=== PATIENT | male | born 1960 | race Caucasian/White ===

== ENCOUNTER 2022-08-04 09:51 | Inpatient (IN) ==
[2022-08-04] MEDS ORDERED: fentaNYL citrate PF 100 MCG/2 ML VIAL IV STA (10:02)
[2022-08-04] MEDS ORDERED: NITROGLYCERIN SL 0.4 MG/TAB TAB SL STA (10:02)
--- NOTE | 2022-08-04 10:06 | Emergency Department Note ---
Impression & Plan ST elevation (STEMI) myocardial infarction ED Provider Note Name: JANIA GREENE Age: 62 Sex: M Arrives Via: Ambulance Informant: Patient, , daughter, EMS ED Provider: Reynaldo Matamoros MD Chief Complaint: Chest pain Impression: As per impression above Medical Decision Making: Pleasant 62-year-old gentleman with history of GERD though no PCP. Does note that he has had on and off chest discomfort for the last few days primarily the last 3 days. Substernal left-sided radiating down the left arm this morning in quite some discomfort. Patient received aspirin 324 mg and sublingual nitro prior to arrival. He did get a bit hypotensive with initial sublingual nitro so this was monitored closely when giving second along with some IV narcotic. Chest x-ray is unremarkable he has good pulses all 4 extremities. He has no tearing pain to back. EKG is consistent with STEMI morphology and thus I feel [facility] indicated. Heart alert was called and patient taken emergently to [facility] for further management. Patient vital signs stable throughout ED stay. I did discuss case with medical anthropologist at bedside. Triage/Nursing Notes reviewed by Me Differentials:ACS/STEMI/NSTEMI/unstable angina, myocarditis, pericarditis, PE, dissection, amongst other pathologies. Vital Signs: reviewed and remarkable for no significant abnormalities Interventions: Sublingual nitroglycerin, fentanyl 50 mcg IV Labs:Reviewed and remarkable for elevated troponin (returned after patient already at cardiac [facility]) Imagin view chest x-ray as per my interpretation reveals no significant wide mediastinum, abnormal cardiac border or pneumothorax, pneumonia. EKG:Per My Interpretation: Indication chest pain: Normal sinus rhythm at 73 bpm QTc of 403. There is anterior/septal ST elevations consistent with acute STEMI. Inferior depressions noted as well. When compared to an EKG of July 01, 2022 STEMI morphology is new. Cardiac/Tele Monitoring: Cardiac Monitoring: An Order was placed for continuous cardiac monitoring. The monitor shows a rate of 70 with a normal sinus rhythm. Consults:Dr Barriga medical anthropologist. Dr Simmons MS Hospitalist Plan: Disposition:Hospitalization. Discharged. Condition: Good History of Present Illness:62-year-old gentleman arrives for evaluation of chest pain. Patient notes that he has had intermittent left-sided chest pain for the last week. Radiates down his left arm. This morning significant worsening of the pain. Notes some moderate shortness of breath as well. Called 911. In route he was given nitro and aspirin. Note pain initially improved but is starting get worse again. Denies any back pain, abdominal pain, nausea, vomiting, syncope, weakness or other concerning signs or symptoms. No recent falls, trauma, injuries. No previous history of cardiac disease. He has a history of GERD. Takes Prilosec daily. No previous catheterizations. He does note that his grandfather of a heart attack. No smoking history. Past History:GERD Home Medications: Prilosec Allergies:NKDA Vitals:Blood Pressure: 140/87, Pulse 74, RR 16, T 36.5C, O2 100% on 2L NC Physical Exam: GENERAL: Patient is uncomfortable appearing and in moderate distress. NECK: No masses appreciated, nomeningismus, trachea is midline. RESPIRATORY: No dyspnea. Clear to auscultation and equal bilaterally. No wheeze, no rhonchi. CARDIOVASCULAR: Regular rate and rhythm.No murmurs, rubs, gallops appreciated. GASTROINTESTINAL: Abdomen soft, non-tender, no peritonitis.Bowel sounds positive.No masses appreciated. EXTREMITIES: Normal motion all extremities, no cyanosis, no edema. NEUROLOGIC: Alert and oriented, no gross focal neurologic deficit appreciated SKIN: No rash, no jaundice, no diaphoresis. PSYCH: Appropriate GCS: 15 ED Course: Times/Reassessments: Patient stable throughout his stay through in the ER with gradually improving chest pain and taken emergently to [facility] for further management. Critical Care: I have personally spent 35 minutes of critical care time in the direct management of this patient. STEMI with lab rep activation. This was a life/limb threatening event. This 35 minutes is in excess of all separately billable procedures. Reynaldo Matamoros MD Past Med/Surg History Medical History Cardiogenic shock Excessive daytime sleepiness Hyperlipidemia No pertinent past medical history Tobacco use Surgical History History of hernia repair Social History Smoking Status: Former smoker Tobacco Type: Smokeless Tobacco (Dip or Chew) Do You Dip or Chew Tobacco: No (Former smokeless tobacco user quit in April 2022.); Hx Alcohol Use: No Hx Substance Use: No Preferred Language: Luxembourgish Beliefs That Will Affect Care: None Current Living Situation: Family Feels Safe at Home: Yes Assistive Devices: Denture - Upper and Glasses Allergies Allergies Allergy/AdvReac Type Severity Reaction Status Date / Time No Known Allergies Allergy Unverified 07/01/22 11:40 Home Meds Home Medications Medication Instructions Recorded Confirmed omeprazole magnesium 20 mg 20 mg PO QAM 07/01/22 07/01/22 tablet,delayed release (Prilosec OTC) Previous Rx's Medication Instructions Recorded lidocaine 5 % topical patch 1 patch topical DAILY PRN pain #15 07/01/22 (Lidoderm) ea Results & Data (ED) Vital Signs Vital Signs - 24 hr 08/04/22 09:56 08/04/22 09:55 08/04/22 10:05 Temperature 36.5 C Temperature Source Oral Pulse Rate 74 Pulse Rate [Apical] 72 Pulse Rhythm [Apical] Respiratory Rate 16 16 Respiratory Effort / Characteristics Non-Labored Non-Labored Respiratory Depth Normal Normal Blood Pressure 140/87 Blood Pressure [Right Arm] 137/86 Blood Pressure Mean 104 Blood Pressure Mean [Right Arm] 103 Pulse Oximetry 100 100 Oxygen Delivery Method Nasal Cannula Nasal Cannula Nasal Cannula Oxygen Flow Rate 2 2 Sepsis Recent Fever Within 48 Hours No Sepsis New/Unexplained Change in Mental Status No Sepsis Action Taken by Nursing No Action Required 08/04/22 10:13 08/04/22 10:09 08/04/22 10:20 Temperature Temperature Source Pulse Rate 81 Pulse Rate [Apical] 73 80 Pulse Rhythm [Apical] Regular Regular Respiratory Rate 16 16 Respiratory Effort / Characteristics Non-Labored Non-Labored Respiratory Depth Normal Normal Blood Pressure Blood Pressure [Right Arm] 128/92 131/76 Blood Pressure Mean Blood Pressure Mean [Right Arm] 104 94 Pulse Oximetry 95 98 Oxygen Delivery Method Room Air Nasal Cannula Oxygen Flow Rate 2 Sepsis Recent Fever Within 48 Hours Sepsis New/Unexplained Change in Mental Status Sepsis Action Taken by Nursing 08/04/22 10:25 08/04/22 10:30 Temperature Temperature Source Pulse Rate Pulse Rate [Apical] 76 80 Pulse Rhythm [Apical] Regular Respiratory Rate 16 16 Respiratory Effort / Characteristics Non-Labored Non-Labored Respiratory Depth Normal Normal Blood Pressure Blood Pressure [Right Arm] 142/98 H 127/87 Blood Pressure Mean Blood Pressure Mean [Right Arm] 112 100 Pulse Oximetry 98 97 Oxygen Delivery Method Nasal Cannula Room Air Oxygen Flow Rate 2 Sepsis Recent Fever Within 48 Hours Sepsis New/Unexplained Change in Mental Status Sepsis Action Taken by Nursing Laboratory Data 08/05/22 01:43 08/05/22 01:43 Lab Results 08/04/22 08/04/22 08/04/22 Range/Units 10:20 10:20 10:20 WBC 10.48 (4.8-10.8) K/ul RBC 5.31 (4.70-6.10) M/uL Hgb 15.8 (14.0-18.0) g/dl Hct 44.9 (42.0-52.0) % MCV 84.6 (80.0-100.0) fL MCH 29.8 (25.0-34.0) pg MCHC 35.2 (32.0-36.0) g/dL RDW Std Deviation 38.5 (36.4-46.3) fL RDW Coeff of Ok 12.7 (11.5-14.5) % Plt Count 179 (130-400) K/uL MPV 12.2 (9.4-12.4) fL Immature Gran % (Auto) 0.7 % Neut % (Auto) 75.6 % Lymph % (Auto) 15.6 % [place] % (Auto) 7.3 % Eos % (Auto) 0.3 % Baso % (Auto) 0.5 % Neut # (Auto) 7.94 H (1.40-6.50) K/uL Lymph # (Auto) 1.63 (1.2-3.4) K/uL [place] # (Auto) 0.76 H (0.11-0.59) K/uL Eos # (Auto) 0.03 (0-0.50) K/uL Baso # (Auto) 0.05 (0-0.2) K/uL Immature Gran # (Auto) 0.07 (0.01-0.20) K/uL PT 11.0 (9.0-12.0) Seconds INR 1.0 (0.9-1.1) APTT 24.1 (21.0-31.0) Seconds PTT Ratio 0.9 Activ Coag Time Kaolin (94-140) SECONDS Sodium 137 (136-145) mmol/L Potassium 3.9 (3.5-5.1) mmol/L Chloride 104 (98-107) mmol/L Carbon Dioxide 23 (21-32) mmol/L Anion Gap 10 (3-11) BUN 12 (6-23) mg/dl Creatinine 0.84 (0.6-1.4) mg/dl Est Cr Clr Drug Dosing 114.8 ml/min Est GFR ( Amer) 110.3 ml/min Est GFR (Non-Af Amer) 95.2 ml/min BUN/Creatinine Ratio 14.3 (10-20) Glucose 216 H (70-99(Fasting)) mg/dl Calcium 9.0 (8.6-10.3) mg/dl Magnesium 1.7 (1.7-2.4) mg/dl Total Bilirubin 0.8 (0.2-1.0) mg/dl Direct Bilirubin 0.1 (0-0.2) mg/dl AST 29 (13-39) U/L ALT 53 H (7-52) U/L Alkaline Phosphatase 51 (34-104) U/L Troponin I High Sens 107.7 H* (0-20) pg/ml Total Protein 7.3 (6.0-8.3) gm/dl Albumin 4.0 (3.4-5.0) gm/dl SARS-CoV-2, RNA, NAAT (NEGATIVE) 08/04/22 08/04/22 08/04/22 Range/Units 10:27 10:58 11:19 WBC (4.8-10.8) K/ul RBC (4.70-6.10) M/uL Hgb (14.0-18.0) g/dl Hct (42.0-52.0) % MCV (80.0-100.0) fL MCH (25.0-34.0) pg MCHC (32.0-36.0) g/dL RDW Std Deviation (36.4-46.3) fL RDW Coeff of Ok (11.5-14.5) % Plt Count (130-400) K/uL MPV (9.4-12.4) fL Immature Gran % (Auto) % Neut % (Auto) % Lymph % (Auto) % [place] % (Auto) % Eos % (Auto) % Baso % (Auto) % Neut # (Auto) (1.40-6.50) K/uL Lymph # (Auto) (1.2-3.4) K/uL [place] # (Auto) (0.11-0.59) K/uL Eos # (Auto) (0-0.50) K/uL Baso # (Auto) (0-0.2) K/uL Immature Gran # (Auto) (0.01-0.20) K/uL PT (9.0-12.0) Seconds INR (0.9-1.1) APTT (21.0-31.0) Seconds PTT Ratio Activ Coag Time Kaolin 245 H 342 H (94-140) SECONDS Sodium (136-145) mmol/L Potassium (3.5-5.1) mmol/L Chloride (98-107) mmol/L Carbon Dioxide (21-32) mmol/L Anion Gap (3-11) BUN (6-23) mg/dl Creatinine (0.6-1.4) mg/dl Est Cr Clr Drug Dosing ml/min Est GFR ( Amer) ml/min Est GFR (Non-Af Amer) ml/min BUN/Creatinine Ratio (10-20) Glucose (70-99(Fasting)) mg/dl Calcium (8.6-10.3) mg/dl Magnesium (1.7-2.4) mg/dl Total Bilirubin (0.2-1.0) mg/dl Direct Bilirubin (0-0.2) mg/dl AST (13-39) U/L ALT (7-52) U/L Alkaline Phosphatase (34-104) U/L Troponin I High Sens (0-20) pg/ml Total Protein (6.0-8.3) gm/dl Albumin (3.4-5.0) gm/dl SARS-CoV-2, RNA, NAAT NEGATIVE (NEGATIVE) Administered Medications Acetaminophen (Acetaminophen 325 Mg Tab) 650 mg PO Q4H PRN PRN Reason: MILD Pain (Scale 1,2,3) Stop: 09/03/22 12:17 Last Admin: 08/04/22 20:29 Dose: 650 mg Documented By: Admin: 08/04/22 15:05 Dose: 650 mg Documented By: MSD Norepinephrine Bitartrate (Levophed/D5w) 4 mg in 250 mls @ 19.519 mls/hr IV .[id number] [facility]; Protocol Stop: 09/03/22 12:29 Last Admin: 08/05/22 03:05 Dose: Not Given Documented By: Admin: 08/04/22 13:35 Dose: Not Given Documented By: MSD Insulin Aspart (Insulin Aspart Per Unit Charge) 0 units SC [facility] Stop: 09/03/22 17:14 Last Admin: 08/04/22 20:22 Dose: 6 units Documented By: TG Co-signed By: DYLAN Admin: 08/04/22 17:09 Dose: Not Given Documented By: ROCIO Metoprolol Tartrate (Metoprolol Tartrate 25 Mg Tab) 12.5 mg PO BID [facility] Stop: 09/03/22 20:59 Last Admin: 08/04/22 20:23 Dose: 12.5 mg Documented By: JR Miscellaneous (Icu Protocol For Hyperglycemia) 1 each N/A [facility] Stop: 08/06/22 12:43 Last Admin: 08/04/22 21:28 Dose: 1 each Documented By: Admin: 08/04/22 16:34 Dose: 1 each Documented By: Admin: 08/04/22 13:47 Dose: 1 each Documented By: ROCIO Ticagrelor (Ticagrelor 90 Mg Tab) 90 mg PO BID [facility] Stop: 09/03/22 20:59 Last Admin: 08/04/22 20:23 Dose: 90 mg Documented By: JR Discontinued Medications Atropine Sulfate (Atropine Sulfate 0.1 Mg/Ml 10ml Syr) Confirm Administered Dose 1 mg IV .STK-MED ONE Stop: 08/04/22 10:18 Last Admin: 08/04/22 13:15 Dose: Not Given Documented By: MSD Calcium Chloride (Calcium Chloride 10% 10 Ml Syr) Confirm Administered Dose 1,000 mg IV .STK-MED ONE Stop: 08/04/22 10:17 Last Admin: 08/04/22 13:15 Dose: Not Given Documented By: MSD Epinephrine HCl (Epinephrine 1.5" Ndl 0.1 Mg/Ml Syr) Confirm Administered Dose 1 mg IV .STK-MED ONE Stop: 08/04/22 10:17 Last Admin: 08/04/22 13:15 Dose: Not Given Documented By: MSD Eptifibatide (Eptifibatide 2 Mg/Ml 10 Ml Vial ([facility] Use Only)) Confirm Administered Dose 40 mg IV .STK-MED ONE Stop: 08/04/22 10:59 Last Admin: 08/04/22 11:55 Dose: 40 mg Documented By: EV Eptifibatide (Eptifibatide 0.75 Mg/Ml 75mg Vial ([facility] Use Only)) Confirm Administered Dose 75 mg IV .STK-MED ONE Stop: 08/04/22 10:59 Last Admin: 08/04/22 11:56 Dose: 75 mg Documented By: SHERIN Fentanyl Citrate (Fentanyl Citrate Pf 100 Mcg/2 Ml Vial) 50 mcg IV NOW STA Stop: 08/04/22 10:03 Last Admin: 08/04/22 10:07 Dose: 50 mcg Documented By: BALDOMERO Fentanyl Citrate (Fentanyl Citrate Pf 100 Mcg/2 Ml Vial) Confirm Administered Dose 100 mcg .ROUTE .STK-MED ONE Stop: 08/04/22 10:10 Last Increment: 08/04/22 11:54 Dose: 75 mcg Documented By: SHERIN Furosemide (Furosemide 40 Mg/4 Ml Vial) Confirm Administered Dose 40 mg IV .STK- MED ONE Stop: 08/04/22 11:55 Last Admin: 08/04/22 11:57 Dose: 40 mg Documented By: DOROTHY Heparin Sodium (Porcine) (Heparin (Porcine) 1000 Unit/Ml 10 Ml ([facility] Use Only)) Confirm Administered Dose 10,000 units .ROUTE .STK-MED ONE Stop: 08/04/22 10:10 Last Admin: 08/04/22 11:34 Dose: 10,000 units Documented By: SHERIN Heparin Sodium (Porcine) (Heparin (Porcine) 1000 Unit/Ml 10 Ml ([facility] Use Only)) Confirm Administered Dose 10,000 units .ROUTE .STK-MED ONE Stop: 08/04/22 11:03 Last Admin: 08/04/22 11:56 Dose: 2,000 units Documented By: SHERIN Heparin Sodium (Porcine) (Heparin (Porcine) 1000 Unit/Ml 10 Ml ([facility] Use Only)) Confirm Administered Dose 10,000 units .ROUTE .STK-MED ONE Stop: 08/04/22 11:24 Last Admin: 08/04/22 11:57 Dose: Not Given Documented By: SHERIN Heparin Sodium/Sodium Chloride (Heparin In Nss Infusion 1000 Unit/500 Ml (2 U/Ml) Bag) Confirm Administered Dose 4,000 units IV .STK-MED ONE Stop: 08/04/22 10:11 Last Admin: 08/04/22 11:55 Dose: 4,000 units Documented By: EV Eptifibatide (Integrilin) 75 mg in 100 mls @ 16.656 mls/hr IV .Q6H1M [facility]; Protocol Stop: 08/04/22 15:00 Last Infusion: 08/04/22 15:10 Dose: 0 mcg/kg/min, 0 mls/hr Documented By: MSD Co-signed By: THERESE Admin: 08/04/22 13:36 Dose: 2 mcg/kg/min, 16.7 mls/hr Documented By: MSD Co-signed By: OLINDA Magnesium Sulfate/Dextrose (Magnesium Sulfate / D5w) 1 gm in 100 mls @ 50 mls/hr IV Q2H JEREMY Stop: 08/05/22 02:59 Last Infusion: 08/05/22 03:05 Dose: 0 mls/hr Documented By: Admin: 08/05/22 00:55 Dose: 50 mls/hr Documented By: Infusion: 08/05/22 00:55 Dose: 50 mls/hr Documented By: Admin: 08/04/22 22:58 Dose: 50 mls/hr Documented By: Infusion: 08/04/22 22:58 Dose: 50 mls/hr Documented By: Admin: 08/04/22 21:24 Dose: 50 mls/hr Documented By: TG Famotidine 20 mg/ Syringe 5 mls @ 2.5 mls/min IV 2145 ONE Stop: 08/04/22 21:46 Last Admin: 08/04/22 22:06 Dose: 2.5 mls/min Documented By: JR Lidocaine HCl (Lidocaine 2% 20 Mg/Ml 5 Ml Syr) Confirm Administered Dose 100 mg IV .STK-MED ONE Stop: 08/04/22 10:18 Last Admin: 08/04/22 13:15 Dose: Not Given Documented By: ROCIO Midazolam HCl (Midazolam Hcl 1 Mg/Ml 2ml Vial) Confirm Administered Dose 2 mg .ROUTE .STK-MED ONE Stop: 08/04/22 10:10 Last Admin: 08/04/22 11:34 Dose: 2 mg Documented By: SHERIN Nicardipine HCl (Nicardipine Hcl Inj 2.5 Mg/Ml 10 Ml Amp) Confirm Administered Dose 25 mg .ROUTE .STK-MED ONE Stop: 08/04/22 10:10 Last Admin: 08/04/22 11:55 Dose: 25 mg Documented By: EV Nitroglycerin (Nitroglycerin Sl 0.4 Mg/Tab Tab) 0.4 mg SL NOW STA Stop: 08/04/22 10:03 Last Admin: 08/04/22 10:07 Dose: 0.4 mg Documented By: BALDOMERO Nitroglycerin/Dextrose (Nitroglycerin/D5w 100mcg/Ml 20ml Syr) Confirm Administered Dose 2,000 mcg .ROUTE .STK-MED ONE Stop: 08/04/22 10:11 Last Admin: 08/04/22 11:55 Dose: 2,000 mcg Documented By: EV Norepinephrine Bitartrate (Norepinephrine Bitartrate 1 Mg/Ml 4 Ml Vial ([facility] Use Only)) Confirm Administered Dose 4 mg IV .STK-MED ONE Stop: 08/04/22 11:01 Last Admin: 08/04/22 11:35 Dose: 4 mg Documented By: SHERIN Ondansetron HCl (Ondansetron Inj 2 Mg/Ml 2 Ml Vial) Confirm Administered Dose 4 mg .ROUTE .STK-MED ONE Stop: 08/04/22 11:27 Last Admin: 08/04/22 11:36 Dose: 4 mg Documented By: SHERIN Potassium Chloride (Potassium Chloride Crtab 20 Meq Tabcr) 40 meq PO NOW STA Stop: 08/04/22 20:46 Last Admin: 08/04/22 21:24 Dose: 40 meq Documented By: JR Sodium Bicarbonate (Sodium Bicarb 8.4% Inj 50 Meq/50 Ml Syr) Confirm Administered Dose 50 meq IV .STK-MED ONE Stop: 08/04/22 10:18 Last Admin: 08/04/22 13:16 Dose: Not Given Documented By: ROCIO Ticagrelor (Ticagrelor 90 Mg Tab) Confirm Administered Dose 180 mg .ROUTE .STK-M ED ONE Stop: 08/04/22 11:59 Last Admin: 08/04/22 12:05 Dose: 180 mg Documented By: DOROTHY Discharge Plan Visit Data Chief Complaint: Chest Pain Stated Complaint: CHEST PAIN, SOB ED Provider: Reynaldo Matamoros Discharge Problem: ST elevation (STEMI) myocardial infarction Patient Disposition: Admitted As Inpatient Discharge Instructions Interventions: ED Discharge Assessment Last Done: 08/04/22 10:29
[2022-08-04] MEDS ORDERED: MIDAZOLAM HCL 1 MG/ML 2ML VIAL ONE (10:09)
[2022-08-04] MEDS ORDERED: HEPARIN (PORCINE) 1000 UNIT/ML 10 ML (CATH LAB USE ONLY) ONE ×3 (10:09→11:23)
[2022-08-04] MEDS ORDERED: fentaNYL citrate PF 100 MCG/2 ML VIAL ONE (10:09)
[2022-08-04] MEDS ORDERED: niCARdipine HCL INJ 2.5 MG/ML 10 ML AMP ONE (10:09)
[2022-08-04] MEDS ORDERED: NITROGLYCERIN/D5W 100MCG/ML 20ML SYR ONE (10:10)
[2022-08-04] MEDS ORDERED: CALCIUM CHLORIDE 10% 10 ML SYR IV ONE (10:16)
[2022-08-04] MEDS ORDERED: LIDOCAINE 2% 20 MG/ML 5 ML SYR IV ONE (10:17)
[2022-08-04] MEDS ORDERED: SODIUM BICARB 8.4% INJ 50 MEQ/50 ML SYR IV ONE (10:17)
[2022-08-04] MEDS ORDERED: ATROPINE SULFATE 0.1 MG/ML 10ML SYR IV ONE (10:17)
--- NOTE | 2022-08-04 10:32 | XRay Report ---
XR chest 1V portable CLINICAL HISTORY: left chest pain TECHNIQUE: Single frontal radiograph of the chest was obtained. Comparison: Comparison is made to chest radiograph 07/01/2022 FINDINGS: No lines and tubes are seen. The cardiomediastinal silhouette is normal. The lungs are clear. No evid ence of pleural effusion or pneumothorax. IMPRESSION: No acute chest disease. ACT 112: Negative or not required by law. Electronically signed by: Carson Daniel M.D. 08/04/2022 10:30 AM
--- NOTE | 2022-08-04 10:37 | Pre Anesthesia Assessment ---
Date of Service August 04, 2022 Pre Sedation Assessment Vital Signs Temp Pulse Pulse Resp BP BP Pulse Ox 08/04/22 10:30 80 16 127/87 97 08/04/22 10:25 76 16 142/98 H 98 08/04/22 10:20 80 16 131/76 98 08/04/22 10:09 81 08/04/22 10:13 73 16 128/92 95 08/04/22 10:05 72 16 137/86 100 08/04/22 09:55 08/04/22 09:56 97.7 F 74 16 140/87 100 O2 Del Method O2 Flow Rate 08/04/22 10:30 Room Air 08/04/22 10:25 Nasal Cannula 2 08/04/22 10:20 Nasal Cannula 2 08/04/22 10:09 08/04/22 10:13 Room Air 08/04/22 10:05 Nasal Cannula 2 08/04/22 09:55 Nasal Cannula 08/04/22 09:56 Nasal Cannula 2 Cardiovascular RRR, no murmur, no edema Respiratory normal respiratory effort, lungs clear to auscultation Pre-Sedation Airway Assessment Smoking Status: Never smoker Hx Sleep Apnea: No Hx Difficult Intubation: No Short, Thick Neck: No Oral Cavity: + WNL Mallampati Class: III ASA: ASA3 Procedure Planning Contraindications for Sedation: none Current Medications Reviewed: Yes Notes The planned sedation has been discussed with the patient. Informed Consent was obtained. I have identified the patient, determined the appropriateness of sedation and have assessed the patient immediately prior to the procedure. All medicine(s) and interventions are by my order.
[2022-08-04 10:39] LABS: Basophils # (auto) 0.05 K/uL (0-0.2); Basophils % (auto) 0.5 %; Eosinophils # (auto) 0.03 K/uL (0-0.50); Eosinophils % (auto) 0.3 %; Hematocrit (blood only) 44.9 % (42.0-52.0); Hemoglobin 15.8 g/dl (14.0-18.0); Immature Granulocytes # (auto) 0.07 K/uL (0.01-0.20); Immature Granulocytes % (auto) 0.7 %; Lymphocytes # (auto) 1.63 K/uL (1.2-3.4); Lymphocytes % (auto) 15.6 %; Mean Corpuscular Hemoglobin 29.8 pg (25.0-34.0); Mean Corpuscular Hgb Conc 35.2 g/dL (32.0-36.0); Mean Corpuscular Volume 84.6 fL (80.0-100.0); Mean Platelet Volume 12.2 fL (9.4-12.4); Monocytes # (auto) 0.76 K/uL (0.11-0.59); Monocytes % (auto) 7.3 %; Neutrophils # (auto) 7.94 K/uL (1.40-6.50); Neutrophils % (auto) 75.6 %; Platelet Count 179 K/uL (130-400); RDW Coefficient of Variation 12.7 % (11.5-14.5); RDW Standard Deviation 38.5 fL (36.4-46.3); Red Blood Count 5.31 M/uL (4.70-6.10); White Blood Count 10.48 K/ul (4.8-10.8)
--- NOTE | 2022-08-04 10:41 | Cardiology Consultation ---
Date of Consultation August 04, 2022 Assessment & Plan (1) ST elevation (STEMI) myocardial infarction: Plan Presentation consistent with anterior STEMI and recommend proceeding with emergent cardiac catheterization and likely primary PCI. No apparent contraindications to procedure. Discussed risks, benefits, alternatives of procedure with patient and they are willing to proceed. Further recommendations pending findings of coronary angiography. History of Present Illness History of Present Illness 62-year-old man here with acute chest pain and ECG concerning for acute MA. Patient seen emergently in the ED. No prior cardiac history. Denies significant cardiac risk factors. History of GERD on intermittent PPI and back pain. Has been having intermittent left sided chest pain for the last 2-3 days, worse with exertion and with associated dyspnea and belching. This morning pain more severe with associated diaphoresis. Active chest pain on arrival, improved with fentanyl, nitro. Hemodynamically stable. ECG showed sinus rhythm with NOHELIA in V2, V3, aVL and reciprocal inferior changes. FHx: Grandfathers with CAD. 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 Non-smoker. Does chew tobacco. Allergies Allergy/AdvReac Type Severity Reaction Status Date / Time No Known Allergies Allergy Unverified 07/01/22 11:40 Home Medications Medication Instructions Recorded Confirmed Type lidocaine 5 % topical patch 1 patch topical DAILY PRN pain #15 07/01/22 Rx (Lidoderm) ea omeprazole magnesium 20 mg 20 mg PO QAM 07/01/22 07/01/22 History tablet,delayed release (Prilosec OTC) Patient History Medical History Cardiogenic shock Excessive daytime sleepiness Hyperlipidemia No pertinent past medical history Tobacco use Surgical History History of hernia repair Social History Smoking Status: Former smoker Tobacco Type: Smokeless Tobacco (Dip or Chew) Do You Dip or Chew Tobacco: No (Former smokeless tobacco user quit in April 2022.); Hx Alcohol Use: No Hx Substance Use: No Preferred Language: Citizen Of [place] Beliefs That Will Affect Care: None Current Living Situation: Family Feels Safe at Home: Yes Assistive Devices: Denture - Upper and Glasses Review of Systems Review of Systems: All systems reviewed & are unremarkable except as noted in HPI & below Physical Exam Physical Exam: General: Uncomfortable HEENT: Sclerae anicteric Lungs: Clear to auscultation bilaterally Cardiac: Regular rate and rhythm, no murmurs. Vascular: 2+ radial Abdomen: Soft, nontender Extremities: Well perfused, no peripheral edema Neuro: Nonfocal Psych: Alert orient x3, normal affect and mood Results & Data Vital Signs (Past 12 Hours) Vital Signs Temp Pulse Pulse Resp BP BP Pulse Ox 08/04/22 10:30 80 16 127/87 97 08/04/22 10:25 76 16 142/98 H 98 08/04/22 10:20 80 16 131/76 98 08/04/22 10:09 81 08/04/22 10:13 73 16 128/92 95 08/04/22 10:05 72 16 137/86 100 08/04/22 09:55 08/04/22 09:56 97.7 F 74 16 140/87 100 O2 Del Method O2 Flow Rate 08/04/22 10:30 Room Air 08/04/22 10:25 Nasal Cannula 2 08/04/22 10:20 Nasal Cannula 2 08/04/22 10:09 08/04/22 10:13 Room Air 08/04/22 10:05 Nasal Cannula 2 08/04/22 09:55 Nasal Cannula 08/04/22 09:56 Nasal Cannula 2 PG Care Time/CCT Total # of Minutes Spent Total Time Spent with Patient: Total time spent is greater than 50% in coordination of care (as documented) at patient's floor/unit and/or counseling patient: Coding Level of Care Code 24999 OFFICE CONSULT LVL /40M Diagnoses ST elevation (STEMI) myocardial infarction I21.3
[2022-08-04 10:50] LABS: BUN Creatinine Ratio 14.3 (10-20); Bilirubin Direct 0.1 mg/dl (0-0.2); Bilirubin,Total 0.8 mg/dl (0.2-1.0); Creatinine Clr Calc Pharmacy 114.8 ml/min; Est GFR (African American) 110.3 ml/min; Est GFR (Non-African American) 95.2 ml/min; Magnesium 1.7 mg/dl (1.7-2.4); Potassium 3.9 mmol/L (3.5-5.1); Total Protein 7.3 gm/dl (6.0-8.3)
[2022-08-04 10:58] LABS: Troponin I High Sensitivity 107.7 pg/ml (0-20)
[2022-08-04] MEDS ORDERED: EPTIFIBATIDE 0.75 MG/ML 75MG VIAL (CATH LAB USE ONLY) IV ONE (10:58)
[2022-08-04] MEDS ORDERED: EPTIFIBATIDE 2 MG/ML 10 ML VIAL (CATH LAB USE ONLY) IV ONE (10:58)
[2022-08-04] MEDS ORDERED: NOREPINEPHRINE BITARTRATE 1 MG/ML 4 ML VIAL (CATH LAB USE ONLY) IV ONE (11:00)
[2022-08-04 11:19] LABS: Partial Thromboplastin Ratio 0.9; Partial Thromboplastin Time 24.1 Seconds (21.0-31.0)
[2022-08-04] MEDS ORDERED: ONDANSETRON INJ 2 MG/ML 2 ML VIAL ONE (11:26)
--- NOTE | 2022-08-04 11:26 | History & Physical Report ---
Date of Service August 04, 2022 Assessment & Plan (1) ST elevation (STEMI) myocardial infarction: Plan: Glynn is a 62-year-old male with no prior medical history other than GERD on omeprazole and back pain on flexeril/lidocaine in the past who does not follow with a who presented with chest pain radiating into his arm. STEMI Patient presented with 2 to 3 days of chest pain which abruptly worsened in with a sudden change in severity and associate with diaphoresis day of presentation Initial troponin 100 - EKG in ER shows ST elevations in aVL/V2/V3 leads with reciprocal changes consistent with acute STEMI. Patient is taken emergently to the Sales And Distribution Clerk. Patient taken as a heart alert emergently to cardiac Sales And Distribution Clerk. Is now s/p LAD stent x1, circumflex stent x3 Loaded with heparin and Brilinta while in ER, received Integrilin during catheterization and continued in ICU Patient with near complete resolution of pain post procedure No prior cardiac history, denies other medical history other than GERD. On discussion with family patient did have a prior history of hyperlipidemia for which she was formally on a cholesterol medicine but has not been on this in many years. He is with a family history of hyperlipidemia and almost all male family m embers, history of OR in both grandfathers No personal history of DM, hypertension Required Levophed use during catheterization for cardiogenic shock, improved post cath and weaned off of Levophed by time of ICU reevaluation Metoprolol temporarily held following Levophed use Atorvastatin 80 mg ordered, lipid panel pending A1c pending Brilinta/aspirin DAPT ordered by cardiology, patient counseled to continue this for at least 1 year Beta-ramsey, LATONIA/ARB/WIN temporarily deferred for recent hypotension requiring pressors. Troponin trended, echo pending Hyperlipidemia Lipid panel Continue atorvastatin 80 mg Impaired fasting glucose BSG 216 on admission, no prior history of DM Insulin hyperglycemia protocol while in ICU A1c pending Diet: Heart healthy Disposition: ICU CODE STATUS: Full code (2) Cardiogenic shock: (3) Hyperlipidemia: (4) Tobacco use: History of Present Illness Primary Care Provider: NO PCP Glynn is a 62-year-old male with no prior medical history other than GERD on omeprazole and back pain on flexeril/lidocaine in the past who does not follow with a who presented with chest pain radiating into his arm. EKG in ER shows ST elevations in aVL/V2/V3 leads with reciprocal changes consistent with acute STEMI. Patient is taken emergently to the Sales And Distribution Clerk. Collateral is collected with the assistance of family while patient is at the bedside.. Per patient's family he has a distant history of hyperlipidemia and a strong family history of hyperlipidemia and multiple male siblings, father, and male grandparents. Glynn was reportedly on a cholesterol medicine many years ago, but has not recently followed with a doctor and stopped taking this medicine several years ago. No personal or family history of diabetes. Family history of OR in both maternal and paternal grandfather, per family thinks that age at OR was around 60s. Patient does not have a history of hypertension, and prior family thinks that his blood pressure is generally relatively controlled but do not know the number. Patient does not have a cigarette or vaping h istory, however he does use snuff/chew and recently transitioned to nicotine gum in an effort to reduce tobacco use. Patient is visited in the ICU postprocedure. He reports that his chest pain in the last 2 to 3 days has been intermittent, improved with rest and belching. The pain he experienced this morning that brought him into the ER felt different as it was much more severe and associated with sweating which the episodes for the prior 2 days were not. Does endorse cardiac history as above. At time bedside visit he reports his chest pain is almost completely resolved, has a little bit of a sharp pain in his left lower rib 2/10, otherwise pain is improved. He denies shortness of breath, lightheadedness, dizziness, numbness, tingling at bedside postprocedure Medical History: Reviewed Medications: Reviewed Surgical History: Reviewed Family history: Reviewed Allergies: Reviewed Social History: Chew/snuff use attempting to transition to nicotine pouches. No cigarette use Code Status:. Full code Allergies Allergy/AdvReac Type Severity Reaction Status Date / Time No Known Allergies Allergy Unverified 07/01/22 11:40 Home Medications Medication Instructions Recorded Confirmed Type lidocaine 5 % topical patch 1 patch topical DAILY PRN pain #15 07/01/22 Rx (Lidoderm) ea omeprazole magnesium 20 mg 20 mg PO QAM 07/01/22 07/01/22 History tablet,delayed release (Prilosec OTC) Past Med/Surg History Medical History Cardiogenic shock Excessive daytime sleepiness Hyperlipidemia No pertinent past medical history Tobacco use Surgical History History of hernia repair Social History Smoking Status: Former smoker Tobacco Type: Smokeless Tobacco (Dip or Chew) Do You Dip or Chew Tobacco: No (Former smokeless tobacco user quit in April 2022.); Hx Alcohol Use: No Hx Substance Use: No Preferred Language: Icelandic Beliefs That Will Affect Care: None Current Living Situation: Family Feels Safe at Home: Yes Safety Concerns: Feels Safe At This Time Assistive Devices: Denture - Upper and Glasses Review of Systems Review of Systems: All systems reviewed & are unremarkable except as noted in Subjective Physical Exam Physical Exam: General: A&Ox3. NAD. Cooperative. HEENT: Atraumatic, normocephalic. Pulm: CTAB A&P. -wheezes, -rales, -rhonchi. Symmetrical chest rise. No increased work of breathing. No respiratory distress. Cardiac: RRR, -mrg. Radial pulses intact and symmetrical. Abdominal: Nontender, nondistended, soft. BS present. Extremities: Right TR band in place, scant amount of bleeding underlying without ongoing bleeding. Cap refill in all fingers less than 2 seconds, brisk. Finger flexion/extension intact with full strength bilaterally, sensation intact in hands and feet bilaterally without asymmetry. No lower extremity edema. Results & Data Results & Data Vital Signs (Past 12 Hours) Vital Signs Temp Pulse Pulse Resp BP BP Pulse Ox 08/04/22 10:30 80 16 127/87 97 08/04/22 10:25 76 16 142/98 H 98 08/04/22 10:20 80 16 131/76 98 08/04/22 10:09 81 08/04/22 10:13 73 16 128/92 95 08/04/22 10:05 72 16 137/86 100 08/04/22 09:55 08/04/22 09:56 36.5 C 74 16 140/87 100 O2 Del Method O2 Flow Rate 08/04/22 10:30 Room Air 08/04/22 10:25 Nasal Cannula 2 08/04/22 10:20 Nasal Cannula 2 08/04/22 10:09 08/04/22 10:13 Room Air 08/04/22 10:05 Nasal Cannula 2 08/04/22 09:55 Nasal Cannula 08/04/22 09:56 Nasal Cannula 2 PG Care Time/CCT Total # of Minutes Spent Total Time Spent with Patient: Total time spent is greater than 50% in coordination of care (as documented) at patient's floor/unit and/or counseling patient: Coding Level of Care Code 62490 INT INP/OBS CARE 3/75MIN Diagnoses ST elevation (STEMI) myocardial infarction I21.3 Cardiogenic shock R57.0 Hyperlipidemia E78.5 Tobacco use Z72.0
[2022-08-04] MEDS ORDERED: FUROSEMIDE 40 MG/4 ML VIAL IV ONE (11:54)
[2022-08-04] MEDS ORDERED: TICAGRELOR 90 MG TAB ONE (11:58)
[2022-08-04] MEDS ORDERED: ONDANSETRON INJ 2 MG/ML 2 ML VIAL IV PRN (12:18)
[2022-08-04] MEDS ORDERED: STAT IV Infusion **Titration per Protocol STA (12:18)
[2022-08-04] MEDS ORDERED: EPTIFIBATIDE BOLUS/DRIP IV STA (12:18)
[2022-08-04] MEDS ORDERED: EPTIFIBATIDE 75 MG/100 ML VIAL IV SCH (12:30)
--- NOTE | 2022-08-04 12:40 | Critical Care Consultation ---
Date of Consultation August 04, 2022 Assessment & Plan (1) ST elevation (STEMI) myocardial infarction: Status post MIGUEL to LAD and 3 stents to the circumflex. Complete infusion of Integrilin. Continue to antiplatelet therapy with aspirin and Brilinta. Start high-dose statin. Monitor in ICU for arrhythmias or other cardiac complications. Hold on beta-blockade or LATONIA inhibitor at this time given hypotensive episode during the cath procedure. Obtain echocardiogram. Check lipids and A1c. Will need outpatient cardiac rehab. Discussed with Dr. Barriga via [place] text. (2) Cardiogenic shock: Resolved. Briefly on Levophed. Hold beta-ramsey and LATONIA inhibitor. (3) Excessive daytime sleepiness: Patient notes he feels sleepy in the evening time after work. notes that he snores occasionally. No history of witnessed apnea. Sister with sleep apne a. Airway exam reveals a Mallampati 3. Stop bang score of 5. Patient would benefit from an in lab polysomnography upon discharge. Weight loss advised as well. History of Present Illness Reason for Consultation: Post STEMI monitoring Attending Physician: Luciano Simmons MD History of Present Illness 62-year-old male with a history of obesity who presented to the hospital due to chest pain which she has intermittently had on the left side for the past week. He noted that the pain was radiating to his left arm has gotten significantly worse as of this morning. He also noted some associated shortness of breath. EMS evaluated the patient at home and he was given nitro and aspirin. Heart alert was called in the ER. He was taken urgently to the [facility]2B Sales Professional and Dr. Barriga performed a left heart catheterization. He was found to have an acutely occluded left anterior descending artery, multiple 90+ percent stenosis in the dominant left circumflex. He ended up getting 1 stent to the LAD and 3 stents to the circumflex. He had brief hypotension during the procedure and required norepinephrine. He was given 40 mg of IV Lasix in the [facility] [facility] due to high filling pressures. He is currently on Integrilin which will be continued for total of 3 hours. He denies any significant symptoms at present. He remains hemodynamically stable. Chest x-ray personally reviewed and is unremarkable. Hemoglobin normal. No si gnificant white count. Allergies Allergy/AdvReac Type Severity Reaction Status Date / Time No Known Allergies Allergy Unverified 07/01/22 11:40 Home Medications Medication Instructions Recorded Confirmed Type lidocaine 5 % topical patch 1 patch topical DAILY PRN pain #15 07/01/22 Rx (Lidoderm) ea omeprazole magnesium 20 mg 20 mg PO QAM 07/01/22 07/01/22 History tablet,delayed release (Prilosec OTC) Patient History Medical History (Updated 08/04/22 @ 13:08 by Erasmo Mathis MD) Cardiogenic shock Excessive daytime sleepiness No pertinent past medical history Surgical History History of hernia repair Social History Smoking Status: Former smoker Tobacco Type: Smokeless Tobacco (Dip or Chew) Do You Dip or Chew Tobacco: No (Former smokeless tobacco user quit in April 2022.); Hx Alcohol Use: No Hx Substance Use: No Preferred Language: Telugu Beliefs That Will Affect Care: None Current Living Situation: Family Feels Safe at Home: Yes Assistive Devices: Denture - Upper and Glasses Review of Systems Review of Systems: All systems reviewed & are unremarkable except as noted in HPI & below Physical Exam Physical Exam: Constitutional: Patient appears to be of their stated age. Patient is in no apparent distress. Patient is well-developed. Eyes: Pupils are equal round and reactive to light. Conjunctivae are normal. Anicteric sclera. Ears nose, mouth and throat: Mallampati class 3. Normal posterior oropharynx. Uvula is midline. Neck: Trachea is midline. Visual inspection is normal. Respiratory: Clear to auscultation bilaterally. No use of accessory muscles. No significant clubbing noted. Cardiovascular: Regular rate and rhythm. No murmurs. No edema. Right wrist TR band in place. Gastrointestinal: Normal bowel sounds, soft, nontender and nondistended. No hepatosplenomegaly noted. Musculoskeletal: No cyanosis. Patient is able to move all extremities. Stre ngth is 5 out of 5 in the upper and lower extremities. Skin: No rashes, warm dry and intact. Neurologic: No obvious focal neurological deficits seen. Psychiatric: Alert and oriented x3 with a euthymic affect. Results & Data Results & Data Vital Signs (Past 12 Hours) Vital Signs Temp Pulse Pulse Resp BP BP Pulse Ox 08/04/22 10:30 80 16 127/87 97 08/04/22 10:25 76 16 142/98 H 98 08/04/22 10:20 80 16 131/76 98 08/04/22 10:09 81 08/04/22 10:13 73 16 128/92 95 08/04/22 10:05 72 16 137/86 100 08/04/22 09:55 08/04/22 09:56 36.5 C 74 16 140/87 100 O2 Del Method O2 Flow Rate 08/04/22 10:30 Room Air 08/04/22 10:25 Nasal Cannula 2 08/04/22 10:20 Nasal Cannula 2 08/04/22 10:09 08/04/22 10:13 Room Air 08/04/22 10:05 Nasal Cannula 2 08/04/22 09:55 Nasal Cannula 08/04/22 09:56 Nasal Cannula 2 Coding Level of Care Code 06554 IN/OBS CONSULT LVL 4,60M Diagnoses ST elevation (STEMI) myocardial infarction I21.3 Cardiogenic shock R57.0 Excessive daytime sleepiness G47.19
[2022-08-04] MEDS: NOREPINEPHRINE/D5W 4 MG/250 ML PLCT IV SCH (13:35)
[2022-08-04] MEDS: ICU Protocol for HYPERglycemia SCH ×3 (13:47→21:28)
[2022-08-04] MEDS: ACETAMINOPHEN 325 MG TAB PO PRN ×2 (15:05→20:29)
[2022-08-04] MEDS ORDERED: CARBOHYDRATES FOR HYPOGLYCEMIA PO PRN (16:57)
[2022-08-04] MEDS ORDERED: GLUCOSE 10 TAB/TUBE PO PRN (16:57)
[2022-08-04] MEDS ORDERED: GLUCOSE 40% GEL 15 GM TUBE PO PRN (16:57)
[2022-08-04] MEDS ORDERED: GLUCAGON FOR INJ 1 MG VIAL SQ PRN (16:57)
[2022-08-04] MEDS ORDERED: DEXTROSE 50% 50 ML SYRINGE IV PRN (16:57)
[2022-08-04] MEDS: INSULIN ASPART PER UNIT CHARGE SC SCH ×2 (17:09→20:22)
--- NOTE | 2022-08-04 17:59 | Electrocardiogram Report ---
Test Reason : Blood Pressure : / mmHG Vent. Rate : 073 BPM Atrial Rate : 073 BPM P-R Int : 140 ms QRS Dur : 078 ms QT Int : 370 ms P-R-T Axes : 071 047 -11 degrees QTc Int : 407 ms Normal sinus rhythm with sinus arrhythmia Low voltage QRS Anteroseptal infarct , possibly acute T wave abnormality, consider inferior ischemia ACUTE RI / STEMI Abnormal ECG When compared with ECG of 01-JUL-2022 10:05, Anteroseptal infarct is now Present ST now depressed in Inferior leads T wave inversion now evident in Inferior leads Confirmed by Alejandro Shelton ([id number]) on 08/04/2022 5:59:45 PM Referred By: REFERRED SELF Confirmed By:Alejandro Shelton
--- NOTE | 2022-08-04 18:07 | Post Anesthesia Assessment ---
Date of Service August 04, 2022 Post Sedation Assessment Vital Signs Temp Pulse Pulse Resp BP BP Pulse Ox 08/04/22 17:00 100 H 16 125/76 96 08/04/22 16:16 98.2 F 100 H 16 121/72 98 08/04/22 15:00 101 H 16 124/81 94 08/04/22 14:00 98.2 F 103 H 18 124/76 94 08/04/22 12:46 99.7 F H 107 H 20 156/95 H 92 08/04/22 10:30 80 16 127/87 97 08/04/22 10:25 76 16 142/98 H 98 08/04/22 10:20 80 16 131/76 98 08/04/22 10:09 81 08/04/22 10:13 73 16 128/92 95 08/04/22 10:05 72 16 137/86 100 08/04/22 09:55 08/04/22 09:56 97.7 F 74 16 140/87 100 O2 Del Method O2 Flow Rate 08/04/22 17:00 Room Air 08/04/22 16:16 Room Air 08/04/22 15:00 Room Air 08/04/22 14:00 Room Air 08/04/22 12:46 Room Air 08/04/22 10:30 Room Air 08/04/22 10:25 Nasal Cannula 2 08/04/22 10:20 Nasal Cannula 2 08/04/22 10:09 08/04/22 10:13 Room Air 08/04/22 10:05 Nasal Cannula 2 08/04/22 09:55 Nasal Cannula 08/04/22 09:56 Nasal Cannula 2 Recovery Score Activity: Moves 4 extremities Respiration: Deep Breath/Cough Circulation: +/-20% PreAnes Value Consciousness: Fully Awake Oxygen Saturation: O2 needed for >90% Discharge Sedation Level of Care: Fast Track Phase II Post Sedation Plan On clinical assessment, the patient appears to have tolerated the sedation witho ut complications. Patient is recovering as anticipated. Patient will continue to be monitored by nursing and may be discharged when sedation discharge criteria are met per below protocol. Upon Completions of procedure up to 15 minutes continue every 5 minute vital signs and the P.A.R. score; then discharge to a Phase I or Fast Track to Phase II per the following guidelines: * Discharge Patient to appropriate Phase II area if PAR is 8 or greater or return to pre- procedure baseline. The post - procedure orders will be as directed. * If PAR score is less than 8 or not return to pre-procedure baseline then patient will follow Phase I monitoring till PAR is reached for Phase II. The Phase I may be done in procedure room or may call to secure a Phase I area. * If naloxone or flumazenil are used for reversal, hold in Phase I for continued monitoring from when last reversal dose was given for a minimum of 60 minutes or longer pending the nurse and/or physician discretion of patient condition before discharge to Phase II. Please call the Sedation Physician to re-evaluate and complete post-note for discharge to Phase II area. Do NOT discharge from procedure sedation or Phase 1 until post- sedation evaluation note is complete by procedure /sedation MD Sedation Discharge Instructions to be given to the patient at discharge to home.
--- NOTE | 2022-08-04 18:16 | Cardiac Catheterization ---
[facility] Data: [facility] Doctor Cardiac Status Clinical evaluation leading to the procedure CAD Presenation: STEMI Anginal Classification: CCS IV Diagnostic Physicians Name: Gabe Barriga MD Closure Device Recommendations: PCI without planned CABG Cardiac Cath Procedure Full Procedure Date August 04, 2022 Pre-Procedure Diagnosis Pre-Procedure Diagnosis: STEMI AUC Score AUC Score: 9 Post-Procedure Diagnosis Post-Procedure Diagnosis: Severe CAD, Successful PCI and Elevated Intracardiac Pressures Procedure(s) Performed Procedure(s) Performed: Coronary Angiography, Left Heart Cath and Drug Eluting Stent Shipping/Receiving Manager Gabe Barriga MD Stereotype Finisher(s) Showers Estimated Blood Loss Estimated Blood Loss: 25 Medication(s) Medication(s): Fentanyl, Heparin, Integrilin, Lidocaine 1%, Nicardipine, Nitroglycerin, Norepinephrine and Versed Medication(s): Ticagrelor Summary of Findings Indication: STEMI/Heart Alert Access: 6 Fr right radial artery Catheters: EBU 3.5 guide, diagnostic JR4 Findings: LM -normal caliber, no significant disease LAD -acute 100% proximal occlusion Circumflex -dominant, large caliber, hazy 95% proximal, 95% latemid just prior to bifurcation with left PLB, 90% diffuse distal disease and small vessel prior to small left PDA. Ramussmall bifurcating vessel with moderate diffuse disease RCA -small nondominant, no significant disease LVEDP -34 -- PCI -- Antithrombotic therapy: Heparin, Integrilin, ticagrelor Procedure: Left main cannulated with EBU 3.5 guide Site Worker 50 wire passed across lesion into distal vessel Earlymid LAD lesion predilated with 2.5 compliant balloon Dilated lesion stented with 2.75 x 26 mm Kevin drug-eluting stent Stent post-dilated with 3.5 noncompliant balloon Patient hypotensive requiring norepinephrine and started on Integrilin for heavy thrombus burden Post procedure WILLIAM 3 flow, stent well expanded with minimal residual stenosis and no apparent cardiac complications. With ongoing chest pain, hemodynamic instability decision to proceed with PCI to dominant circumflex Site Worker 50 redirected into left PLB Whisper wire directed across distal stenosis into left PDA Distal, mid, proximal lesions dilated with 2.0 balloon Mid circumflex lesion stented with 2.25 x 22 mm [place] MIGUEL Proximal circumflex lesion stented with 3.0 x 15 mm [place] MIGUEL Stents postdilated with 3.0 NC Residual severe disease in distal circumflex prior to PDA Distal lesion stented with 2.25 x 15 mm [place], postdilated with stent balloon Post procedure WILLIAM 3 flow, stents well expanded with minimal residual stenosis and no apparent cardiac complications. Chest pain-free. At completion of procedure on minimal norepinephrine. Given 40 of IV Lasix for elevated LVEDP. Arterial Closure: TR band Summary: 1. Anterior STEMI/acute 100% proximal LAD occlusion 2. Severe non-culprit coronary artery disease - dominant circumflex with hazy 95% proximal, 95% mid, and small distal vessel with 90% disease 3. Elevated intracardiac filling pressure 4. Hypotension/cardiogenic shock requiring vasopressor 5. Successful PCI of proximal to mid LAD with single drug-eluting stent (2.75 x 26 mm Kevin; postdilated with 3.5 NC). 6. Successful PCI of sequential circumflex lesions with 3 drug-eluting stents (3.0 x 15, 2.25 x 22 [postdilated with 3.0 NC], 2.25 x 15 Kevin). Recommendations: Admit to ICU for continued monitoring Loaded with ticagrelor 180 mg in Ham Doctor Continue Integrilin for 3 hours Long-term continue dual-antiplatelet therapy for at least 1 year. Trend troponins until peak, Check Echo Start beta-ramsey, LATONIA, MRA when BP allows High-dose statin Consult cardiac Rehab Hemodynamics Rest Ao:: 125/79/101 Final Ao: 114/72/91 LV: 108/34 Recommendations Recommendations: PCI without planned CABG Specimens Specimens: None Radiation Exposure (mGy) 4824 Contrast (mls) 175 Anesthesia Moderate [id number] Procedural Complication(s) None Disposition ICU I attest to the content of the Intraoperative Record and any orders documented therein. Any exceptions are noted below. [facility] Card Cath Procedure Codes Cardiac Catheterization Procedure 1: Cardiovascular Cath Procedures: 87272 Coronaries and LHC (+/-LV) Moderate Sedation Procedure 1: Sedation/Anesthesia: 46192 Mod Sedation by the same physician;Init15 Min Child Age 5 & Up Procedure 2: Sedation/Anesthesia: 81035 Mod Sedation by the same physician; Ea [id number] Minutes Stenting Procedure 1: Cardiovascular Stent Procedures: 64736 Perc transluminal revascularization of acute sub/total occl, aMI Procedure 2: Cardiovascular Stent Procedures: 43911 Ea addl branch of a major coronary artery PG Care Time/CCT Total # of Minutes Spent Total Time Spent with Patient: Total time spent is greater than 50% in coordination of care (as documented) at patient's floor/unit and/or counseling patient:
--- NOTE | 2022-08-04 18:16 | Electrocardiogram Report ---
Test Reason : Blood Pressure : / mmHG Vent. Rate : 100 BPM Atrial Rate : 100 BPM P-R Int : 150 ms QRS Dur : 084 ms QT Int : 338 ms P-R-T Axes : 063 079 030 degrees QTc Int : 436 ms Normal sinus rhythm Low voltage QRS Serial changes of evolving Anterior infarct Abnormal ECG When compared with ECG of 04-AUG-2022 09:57, (unconfirmed) ST more elevated in Anterior leads T wave inversion no longer evident in Inferior leads T wave amplitude has decreased in Anterior leads Confirmed by Alejandro Shelton ([id number]) on 08/04/2022 6:16:11 PM Referred By: REFERRED SELF Confirmed By:Alejandro Shelton
[2022-08-04] MEDS: TICAGRELOR 90 MG TAB PO SCH (20:23)
[2022-08-04] MEDS: METOPROLOL TARTRATE 25 MG TAB PO SCH (20:23)
[2022-08-04 20:32] LABS: Calcium 8.9 mg/dl (8.6-10.3); Creatinine Clr Calc Pharmacy 108.3 ml/min; Est GFR (African American) 107.7 ml/min; Est GFR (Non-African American) 92.9 ml/min; Magnesium 1.6 mg/dl (1.7-2.4); Potassium 3.7 mmol/L (3.5-5.1)
[2022-08-04] MEDS ORDERED: POTASSIUM CHLORIDE CRTAB 20 MEQ TABCR PO STA (20:45)
[2022-08-04 21:15] LABS: Troponin I High Sensitivity 142176.9 pg/ml (0-20)
[2022-08-04] MEDS: MAGNESIUM SULFATE / D5W 1 GM/100 ML BAG IV SCH ×2 (21:24→22:58)
[2022-08-04] MEDS ORDERED: FAMOTIDINE 20 MG in SYRINGE 3 ML IV ONE (21:45)
--- NOTE | 2022-08-04 21:53 | XCELERA ---
[id number] \\[id number]
[2022-08-05] MEDS: MAGNESIUM SULFATE / D5W 1 GM/100 ML BAG IV SCH (00:55)
[2022-08-05 01:59] LABS: Basophils # (auto) 0.03 K/uL (0-0.2); Basophils % (auto) 0.2 %; Eosinophils # (auto) 0.02 K/uL (0-0.50); Eosinophils % (auto) 0.1 %; Hematocrit (blood only) 45.1 % (42.0-52.0); Hemoglobin 15.8 g/dl (14.0-18.0); Immature Granulocytes % (auto) 0.6 %; Lymphocytes # (auto) 2.12 K/uL (1.2-3.4); Lymphocytes % (auto) 13.4 %; Mean Corpuscular Hemoglobin 29.5 pg (25.0-34.0); Mean Corpuscular Volume 84.3 fL (80.0-100.0); Mean Platelet Volume 12.2 fL (9.4-12.4); Monocytes # (auto) 1.28 K/uL (0.11-0.59); Monocytes % (auto) 8.1 %; Neutrophils # (auto) 12.29 K/uL (1.40-6.50); Neutrophils % (auto) 77.6 %; Platelet Count 191 K/uL (130-400); RDW Coefficient of Variation 12.7 % (11.5-14.5); RDW Standard Deviation 38.5 fL (36.4-46.3); Red Blood Count 5.35 M/uL (4.70-6.10); White Blood Count 15.84 K/ul (4.8-10.8)
[2022-08-05 02:12] LABS: Alanine Aminotransferase 119 U/L (7-52); Albumin Level 3.6 gm/dl (3.4-5.0); Alkaline Phosphatase 46 U/L (34-104); Anion Gap 9 (3-11); Aspartate Aminotransferase 295 U/L (13-39); BUN Creatinine Ratio 17.6 (10-20); Bilirubin,Total 1.1 mg/dl (0.2-1.0); Blood Urea Nitrogen 15 mg/dl (6-23); Calcium 8.7 mg/dl (8.6-10.3); Carbon Dioxide 24 mmol/L (21-32); Chloride 101 mmol/L (98-107); Cholesterol 222 mg/dl (0-200); Creatinine Clr Calc Pharmacy 113.4 ml/min; Est GFR (African American) 109.8 ml/min; Est GFR (Non-African American) 94.7 ml/min; Glucose 222 mg/dl (70-99(Fasting)); HDL Cholesterol 38 mg/dl; Magnesium 2.2 mg/dl (1.7-2.4); Phosphorus 4.2 mg/dl (2.5-4.9); Potassium 3.9 mmol/L (3.5-5.1); Sodium 134 mmol/L (136-145); Total Protein 6.7 gm/dl (6.0-8.3); Triglycerides 439 mg/dl (0-150)
[2022-08-05 02:17] LABS: Albumin Globulin Ratio 1.2 (0.9-2); Chol HDL Ratio 5.8 (0-5); Globulin 3.1 gm/dl (2.5-4.0)
[2022-08-05] MEDS: NOREPINEPHRINE/D5W 4 MG/250 ML PLCT IV SCH (03:05)
[2022-08-05] MEDS: ICU Protocol for HYPERglycemia SCH (07:34)
[2022-08-05] MEDS: ATORVASTATIN 40 MG TAB PO SCH (08:07)
[2022-08-05] MEDS: ASPIRIN 81 MG ECTAB PO SCH (08:07)
[2022-08-05] MEDS: INSULIN ASPART PER UNIT CHARGE SC SCH ×4 (08:07→20:33)
[2022-08-05] MEDS: TICAGRELOR 90 MG TAB PO SCH ×2 (08:08→20:34)
[2022-08-05] MEDS: METOPROLOL TARTRATE 25 MG TAB PO SCH (08:08)
--- NOTE | 2022-08-05 12:08 | Hospitalist Progress Note ---
Date of Service August 05, 2022 Assessment & Plan (1) ST elevation (STEMI) myocardial infarction: Plan: Glynn is a 62-year-old male with no prior medical history other than GERD on omeprazole and back pain on flexeril/lidocaine in the past who does not follow with a who presented with chest pain radiating into his arm, found to have anterior STEMI on arrival Taken urgently to the cardiac Proofer Apprentice and is now s/p LAD stent x1, circumflex stent x3 Now chest pain-free Loaded with heparin and Brilinta while in ER, received Integrilin during catheterization and continued in ICU -Stable post catheterization, with a few short runs of nonsustained VT on telemetry -Continue aspirin and Brilinta -LDL unable to be calculated due to elevated triglycerides, but nonetheless started high intensity atorvastatin 80 mg daily - hemoglobin A1c pending -Cardiology is increasing metoprolol today to 25 Mg p.o. twice daily and plan to convert to Toprol-XL on discharge -Plan to add lisinopril 5 mg daily, and possibly spironolactone on discharge Required Levophed use during catheterization for cardiogenic shock, improved post cath and weaned off of Levophed in ICU -- Consider SGLT2i as an outpatient -- Possibly home tomorrow with cardiology f/up in 1 week. Cardiac rehab to be arranged by cardiology. -Continue to monitor on telemetry (2) Cardiogenic shock: Plan: Now resolved, briefly required Levophed in the Proofer Apprentice EF mildly reduced at 40-45% with wall motion abnormalities as noted above Stable for transfer out of ICU (3) Hyperlipidemia: Plan: Elevated triglycerides, LDL unable to be calculated Continue atorvastatin Follow as an outpatient (4) Ischemic cardiomyopathy: Plan: As noted above, reduced EF 40-45% secondary to wall motion abnormalities from [place] Follow as an outpatient Plan to convert metoprolol to tartrate to metoprolol succinate on discharge Starting lisinopril and hopefully spironolactone if blood pressure allows tomorrow Follow echo as an outpatient (5) Tobacco use: Plan: He recently quit chewing tobacco, congratulated him for this (6) GERD (gastroesophageal reflux disease): Plan: Convert to Protonix rather than Prilosec at home and patient would like a prescription for Protonix on discharge Plan DVT prophylaxis-SCDs Disposition-downgrade out of ICU to telemetry Admission and Anticipated Discharge Date Admission Date: August 04, 2022 Subjective Pt feeling well, no chest pain. Feels sometimes like he can't take a deep breath but way better than the way he felt yesterday and for the last few days prior to admission. Reports many years of taking Prilosec and wants to know if he should switch to something else as it hasn't been working the last few weeks-discussed that these GI symptoms may have been angina instead but will also try Protonix anyway. Tele with a 12 beat run of NSVT Discussed his care with Cardiology and Licensed Psychiatric Technician Physical Exam Constitutional: WD/WN, vitals as above Neck: trachea midline, no thyromegaly Respiratory: normal respiratory effort, lungs clear to auscultation Cardiovascular: RRR, no murmur, no edema Chest (Breasts): Chest: normal inspection of chest Gastrointestinal (Abdomen): normal bowel sounds, soft, nontender, no hepatosplenomegaly Musculoskeletal: Extremities: extremities normal to inspection; no cyanosis and no clubbing Skin: no rashes, warm and dry Neurologic: moves all extremities and awake; no focal motor deficits Psychiatric: A+Ox3, euthymic affect Results & Data Results & Data Vital Signs (Past 12 Hours) Vital Signs Temp Pulse Resp BP Pulse Ox O2 Del Method 08/05/22 10:00 90 17 94 08/05/22 10:00 123/82 08/05/22 09:00 93 H 16 96 08/05/22 09:00 130/83 08/05/22 08:00 81 08/05/22 08:00 Room Air 08/05/22 08:00 89 16 96 08/05/22 08:00 131/72 08/05/22 07:00 86 12 128/86 93 08/05/22 06:00 84 14 120/83 94 Room Air 08/05/22 05:22 36.8 C 86 19 136/82 95 Room Air 08/05/22 05:00 90 18 93 08/05/22 05:00 133/85 08/05/22 04:17 86 15 94 08/05/22 04:17 126/81 08/05/22 04:00 84 12 93 08/05/22 04:00 133/80 08/05/22 03:00 84 14 129/86 91 Room Air 08/05/22 02:00 87 18 134/79 94 08/05/22 01:00 86 18 126/80 94 Room Air Laboratory Results CBC, BMP, lipid panel, magnesium level reviewed Diagnostic Findings ECHO with EF 40-45% with apical akinesis, mid anteroseptal and anterior septal hypokinesis PG Care Time/CCT Total # of Minutes Spent Total Time Spent with Patient: Total time spent is greater than 50% in coordination of care (as documented) at patient's floor/unit and/or counseling patient: Coding Level of Care Code 84488 SUB INP/OBS CARE 3/50MIN Diagnoses ST elevation (STEMI) myocardial infarction I21.3 Cardiogenic shock R57.0 Hyperlipidemia E78.5 Ischemic cardiomyopathy I25.5 Tobacco use Z72.0 GERD (gastroesophageal reflux disease) K21.9
--- NOTE | 2022-08-05 12:09 | Cardiology Progress Note ---
Date of Service August 05, 2022 Assessment & Plan (1) CAD (coronary artery disease): Plan: --Anterior STEMI - PCI to proximal LAD --Severe dominant LCx disease - 3 non-overlapping MIGUEL 2. ICM - EF40-45%, LAD distribution wma 3. Dyslipidemia 4. Suspected type 2 DM 5. NSVT 6. Elevated LFTs 7. GERD Chest pain free. Troponin peaked. Hemodynamically stable. No access complications. Brief runs NSVT -- Continue DAPT with ASA/Ticagrelor -- Increase metoprolol to 25 mg BID -- home on Toprol XL -- Start lisinopril 5mg -- Add spironolactone if BP allows tomorrow -- Continue Atorvastatin -- Continue PPI -- Consider SGLT2i as an outpatient -- From a cardiac standpoint OK with transfer to telemetry today. -- Possibly home tomorrow with cardiology f/up in 1 week. Cardiac rehab to be arranged. Admission and Anticipated Discharge Date Admission Date: August 04, 2022 Subjective Feeling well today. No chest pain. No other new concerns. Tele reviewed - sinus rhythm, few episodes of NSVT - longest 12 beats. Review of Systems Review of Systems: All systems reviewed & are unremarkable except as noted in HPI & below Physical Exam Physical Exam: General: Comfortable, looks well HEENT: Sclerae anicteric Lungs: Clear to auscultation bilaterally Cardiac: Regular rate and rhythm, no murmurs. Vascular: 2+ RT radial, no ecchymosis or hematoma. Abdomen: Soft, nontender Extremities: Well perfused, no peripheral edema. 2+ DP on RT, 1+ DP on LT Neuro: Nonfocal Psych: Alert orient x3, normal affect and mood Results & Data Vital Signs (Past 12 Hours) Vital Signs Temp Pulse Resp BP Pulse Ox O2 Del Method 08/05/22 10:00 90 17 94 08/05/22 10:00 123/82 08/05/22 09:00 93 H 16 96 08/05/22 09:00 130/83 08/05/22 08:00 81 08/05/22 08:00 Room Air 08/05/22 08:00 89 16 96 08/05/22 08:00 131/72 08/05/22 07:00 86 12 128/86 93 08/05/22 06:00 84 14 120/83 94 Room Air 08/05/22 05:22 98.2 F 86 19 136/82 95 Room Air 08/05/22 05:00 90 18 93 08/05/22 05:00 133/85 08/05/22 04:17 86 15 94 08/05/22 04:17 126/81 08/05/22 04:00 84 12 93 08/05/22 04:00 133/80 08/05/22 03:00 84 14 129/86 91 Room Air 08/05/22 02:00 87 18 134/79 94 08/05/22 01:00 86 18 126/80 94 Room Air PG Care Time/CCT Total # of Minutes Spent Total Time Spent with Patient: Total time spent is greater than 50% in coordination of care (as documented) at patient's floor/unit and/or counseling patient: Coding Level of Care Code 44765 SUB INP/OBS CARE 3/50MIN Diagnoses CAD (coronary artery disease) I25.10
[2022-08-05] MEDS ORDERED: METOPROLOL TARTRATE 25 MG TAB PO ONE (12:18)
[2022-08-05] MEDS: lisinopril 5 MG TAB PO SCH (12:31)
[2022-08-05] MEDS: PANTOprazole 40 MG TAB PO SCH (12:31)
--- NOTE | 2022-08-05 13:26 | Critical Care Progress Note ---
Date of Service August 05, 2022 Assessment & Plan (1) ST elevation (STEMI) myocardial infarction: Plan: Status post MIGUEL to LAD and 3 stents to the circumflex. Stable for downgrade out of ICU. (2) Cardiogenic shock: Plan: Resolved. Briefly on Levophed. Patient started on beta-ramsey and LATONIA inhibitor by Dr. Brariga. Appreciate his input. (3) Excessive daytime sleepiness: Plan: Patient notes he feels sleepy in the evening time after work. notes that he snores occasionally. No history of witnessed apnea. Sister with sleep apnea. Airway exam reveals a Mallampati 3. Stop bang score of 5. Patient would benefit from an in lab polysomnography upon discharge. Weight loss advised as well. Plan Thank you for allowing me to participate in the care of the patient. ICU will sign off. Please call with questions. Admission and Anticipated Discharge Date Admission Date: August 04, 2022 Subjective Discussed with bedside RN and marine steam fitter helper. No acute events overnight. Short run of VT earlier today. Cardiology aware. Metoprolol and lisinopril initiated by Dr. Barriga. Review of Systems Review of Systems: All systems reviewed & are unremarkable except as noted in HPI & below Physical Exam Physical Exam: Constitutional: Patient appears to be of their stated age. Patient is in no apparent distress. Patient is well-developed. Eyes: Pupils are equal round and reactive to light. Conjunctivae are normal. Anicteric sclera. Ears nose, mouth and throat: Mallampati class 3. Normal posterior oropharynx. Uvula is midline. Neck: Trachea is midline. Visual inspection is normal. Respiratory: Clear to auscultation bilaterally. No use of accessory muscles. No significant clubbing noted. Cardiovascular: Regular rate and rhythm. No murmurs. No edema. Right wrist TR band in place. Gastrointestinal: Normal bowel sounds, soft, nontender and nondistended. No hepatosplenomegaly noted. Musculoskeletal: No cyanosis. Patient is able to move all extremities. Strength is 5 out of 5 in the upper and lower extremities. Skin: No rashes, warm dry and intact. Neurologic: No obvious focal neurological deficits seen. Psychiatric: Alert and oriented x3 with a euthymic affect. Results & Data Results & Data Vital Signs (Past 12 Hours) Vital Signs Temp Pulse Resp BP Pulse Ox O2 Del Method 08/05/22 12:00 108 H 21 96 08/05/22 12:00 126/78 08/05/22 11:00 87 21 95 08/05/22 11:00 121/85 08/05/22 10:00 90 17 94 08/05/22 10:00 123/82 08/05/22 09:00 93 H 16 96 08/05/22 09:00 130/83 08/05/22 08:00 81 08/05/22 08:00 Room Air 08/05/22 08:00 89 16 96 08/05/22 08:00 131/72 08/05/22 07:00 86 12 128/86 93 08/05/22 06:00 84 14 120/83 94 Room Air 08/05/22 05:22 36.8 C 86 19 136/82 95 Room Air 08/05/22 05:00 90 18 93 08/05/22 05:00 133/85 08/05/22 04:17 86 15 94 08/05/22 04:17 126/81 08/05/22 04:00 84 12 93 08/05/22 04:00 133/80 08/05/22 03:00 84 14 129/86 91 Room Air 08/05/22 02:00 87 18 134/79 94 Coding Level of Care Code 74710 SUB INP/OBS CARE Diagnoses ST elevation (STEMI) myocardial infarction I21.3 Cardiogenic shock R57.0 Excessive daytime sleepiness G47.19
[2022-08-05] MEDS ORDERED: METOPROLOL TARTRATE 25 MG TAB PO SCH (21:00)
[2022-08-06 07:21] LABS: Basophils # (auto) 0.06 K/uL (0-0.2); Basophils % (auto) 0.6 %; Eosinophils # (auto) 0.05 K/uL (0-0.50); Eosinophils % (auto) 0.5 %; Hematocrit (blood only) 44.7 % (42.0-52.0); Hemoglobin 15.4 g/dl (14.0-18.0); Immature Granulocytes # (auto) 0.09 K/uL (0.01-0.20); Immature Granulocytes % (auto) 0.8 %; Lymphocytes # (auto) 2.13 K/uL (1.2-3.4); Lymphocytes % (auto) 20.1 %; Mean Corpuscular Hemoglobin 29.6 pg (25.0-34.0); Mean Corpuscular Hgb Conc 34.5 g/dL (32.0-36.0); Mean Corpuscular Volume 85.8 fL (80.0-100.0); Mean Platelet Volume 11.9 fL (9.4-12.4); Monocytes # (auto) 1.22 K/uL (0.11-0.59); Monocytes % (auto) 11.5 %; Neutrophils # (auto) 7.06 K/uL (1.40-6.50); Neutrophils % (auto) 66.5 %; Platelet Count 170 K/uL (130-400); RDW Standard Deviation 40.1 fL (36.4-46.3); Red Blood Count 5.21 M/uL (4.70-6.10); White Blood Count 10.61 K/ul (4.8-10.8)
[2022-08-06 07:43] LABS: Albumin Globulin Ratio 1.2 (0.9-2); Albumin Level 3.6 gm/dl (3.4-5.0); Bilirubin,Total 1.5 mg/dl (0.2-1.0); Calcium 8.5 mg/dl (8.6-10.3); Est GFR (African American) 94.4 ml/min; Est GFR (Non-African American) 81.4 ml/min; Globulin 3.1 gm/dl (2.5-4.0); Magnesium 1.9 mg/dl (1.7-2.4); Potassium 3.8 mmol/L (3.5-5.1); Total Protein 6.7 gm/dl (6.0-8.3)
[2022-08-06 08:09] LABS: Estimated Average Glucose 209 mg/dl; Hemoglobin A1C 8.9 % (4.5-5.6)
[2022-08-06] MEDS: TICAGRELOR 90 MG TAB PO SCH (08:28)
[2022-08-06] MEDS: INSULIN ASPART PER UNIT CHARGE SC SCH ×2 (08:28→12:04)
[2022-08-06] MEDS: PANTOprazole 40 MG TAB PO SCH (08:29)
[2022-08-06] MEDS: ATORVASTATIN 40 MG TAB PO SCH (08:29)
[2022-08-06] MEDS: ASPIRIN 81 MG ECTAB PO SCH (08:29)
[2022-08-06] MEDS: lisinopril 5 MG TAB PO SCH (08:29)
[2022-08-06] MEDS ORDERED: metFORMIN HCL 500 MG TAB PO SCH (08:30)
[2022-08-06] MEDS ORDERED: METOPROLOL SUCC 50MG EXT REL TAB PO SCH (09:00)
[2022-08-06] MEDS ORDERED: SPIRONOLACTONE 25 MG TAB PO SCH (09:00)
--- NOTE | 2022-08-06 11:41 | Discharge Summary ---
Date of Service August 06, 2022 Admission HPI Per Admitting Provider Glynn is a 62-year-old male with no prior medical history other than GERD on omeprazole and back pain on flexeril/lidocaine in the past who does not follow with a who presented with chest pain radiating into his arm. EKG in ER shows ST elevations in aVL/V2/V3 leads with reciprocal changes consistent with acute STEMI. Patient is taken emergently to the Employment Coach. Collateral is collected with the assistance of family while patient is at the bedside.. Per patient's family he has a distant history of hyperlipidemia and a strong family history of hyperlipidemia and multiple male siblings, father, and male grandparents. Glynn was reportedly on a cholesterol medicine many years ago, but has not recently followed with a doctor and stopped taking this medicine several years ago. No personal or family history of diabetes. Family history of [place] in both maternal and paternal grandfather, per family thinks that age at [place] was around 60s. Patient does not have a history of hypertension, and prior family thinks that his blood pressure is generally relatively controlled but do not know the number. Patient does not have a cigarette or vaping history, however he does use snuff/chew and recently transitioned to nicotine gum in an effort to reduce tobacco use. Patient is visited in the ICU postprocedure. He reports that his chest pain in the last 2 to 3 days has been intermittent, improved with rest and belching. The pain he experienced this morning that brought him into the ER felt different as it was much more severe and associated with sweating which the episodes for the prior 2 days were not. Does endorse cardiac history as above. At time bedside visit he reports his chest pain is almost completely resolved, has a little bit of a sharp pain in his left lower rib 2/10, otherwise pain is improved. He denies shortness of breath, lightheadedness, dizziness, numbness, tingling at bedside postprocedure Medical History: Reviewed Medications: Reviewed Surgical History: Reviewed Family history: Reviewed Allergies: Reviewed Social History: Chew/snuff use attempting to transition to nicotine pouches. No cigarette use Code Status:. Full code Principal Diagnosis Acute anterior wall ST elevation [place], cardiogenic shock, new onset type 2 diabetes Discharge Exam General-alert and oriented x3, no fevers, no chills HEENT-head atraumatic and normocephalic, pupils equal and reactive to light, extraocular muscles intact Neck-no lymphadenopathy or thyromegaly, trachea midline Chest-clear to auscultation percussion. No rales wheezing or rhonchi Cardiac-regular rate and rhythm, normal S1 and S2 Abdomen-normal bowel sounds, nontender, no hepatosplenomegaly Extremities-no cyanosis, clubbing, or edema Neuro-cranial nerves II through XII intact, motor and sensory function within normal limits, strength symmetrical , no focal deficits Psych-normal affect, normal mood Discharge Data Allergies Allergy/AdvReac Type Severity Reaction Status Date / Time No Known Allergies Allergy Unverified 07/01/22 11:40 Consultations 08/04/22 10:46 ED Decision to Admit Stat 08/04/22 12:23 Consult Lithographic Plate Maker Apprentice Routine 08/04/22 12:44 Consult Lithographic Plate Maker Apprentice Routine 08/05/22 19:11 Consult [facility] hand sander Routine Procedures Performed Operation Date: 08/04/22 10:30 Actual Procedures s Cineradiography w/Routine Exam - Ever Barriga MD p Aspiration/PCI w/MIGUEL for Stemi - Ever Barriga MD s Cath, Left with Cors and Vent - Ever Barriga MD s Drug Eluting Stent each ADDTL Vessel - Ever Barriga MD Ordered Studies 08/04/22 10:10 CL Cath Imgs for PACS use only Stat Hospital Course (1) ST elevation (STEMI) myocardial infarction: Glynn is a 62-year-old male with no prior medical history other than GERD on omeprazole and back pain on flexeril/lidocaine in the past who does not follow with a who presented with chest pain radiating into his arm, found to have anterior STEMI on arrival Taken urgently to the cardiac Employment Coach and is now s/p LAD stent x1, circumflex stent x3 Now chest pain-free Loaded with heparin and Brilinta while in ER, received Integrilin during catheterization and continued in ICU -Stable post catheterization, with a few short runs of nonsustained VT on telemetry -Continue aspirin and Brilinta -LDL unable to be calculated due to elevated triglycerides, but nonetheless started high intensity atorvastatin 80 mg daily -Metoprolol tartrate switched to metoprolol succinate formulation todayAugust 06 -Added spironolactone 25 mg August 06 plan to add lisinopril 5 mg daily, and possibly spironolactone on discharge Required Levophed use during catheterization for cardiogenic shock, improved post cath and weaned off of Levophed in ICU (2) Cardiogenic shock: Now resolved, briefly required Levophed in the Employment Coach EF mildly reduced at 40-45% with wall motion abnormalities as noted above (3) Hyperlipidemia: Elevated triglycerides, LDL unable to be calculated Continue atorvastatin Follow as an outpatient (4) Ischemic cardiomyopathy: As noted above, reduced EF 40-45% secondary to wall motion abnormalities from [place] Follow as an outpatient converted metoprolol tartrate to metoprolol succinate today, August 06 Starting lisinopril and spironolactone today, August 06 (5) Tobacco use: He recently quit chewing tobacco (6) GERD (gastroesophageal reflux disease): Stable. Continue PPI therapy (7) Type 2 diabetes mellitus: New diagnosis. Hemoglobin A1c is 8.9%. He has been started on metformin. He is now on a diabetic diet. Plan DVT prophylaxis-SCDs Disposition-Home todayAugust 06. He will follow-up with his PCP and cardiology as directed. Total Time Total Time Spent Total Time Spent (In Minutes): 45 minutes Discharge Plan Discharge Items Patient Disposition: Home - Self-Care Reason For Visit: STEMI Discharge Diagnosis: Anterior wall ST elevation [place], new type II diabetes, cardiogenic shock Activity: Resume your previous activity Non-emergency contact: Primary Care Provider and Gas Brazer Call non-emergency contact if: you have any medication questions and your symptoms worsen Follow-up/Referrals: Martín Gudino CRNP [Nurse Practitioner] - 10/10/22 10:05 am (10/10/2022 at 10:05am-- Establish Care Visit Please arrive 15 minutes prior to appointment time) Ever Barriga MD [Physician] - 08/21/22 9:30 am (Cardiology hospital follow up) Jessica Garcia PA-C [Physician Lap Winder] - 08/17/22 3:20 pm (Hospital follow up appointment) PCP,NO [Primary Care Provider] - Diet: Carb Consistent or DM2 and Heart Healthy Addtl Attending Provider Instructions: Multiple medications are new. Follow a diabetic heart healthy diet. Check fasting sugar levels every morning before breakfast and keep a record to show your PCP. Pending Studies at Discharge: No Stand-Alone Forms: Yoics, Smoking Cessation Medications and DC Order Prescriptions: New atorvastatin 40 mg Tablet 80 mg PO QAM Qty: 30 0RF metformin 500 mg Tablet 500 mg PO BIDM Qty: 60 0RF metoprolol succinate 50 mg Tablet Extended Release 24 Hr 50 mg PO QAM Qty: 30 0RF spironolactone 25 mg Tablet 25 mg PO QAM Qty: 30 0RF lisinopril [Zestril] 5 mg Tablet 5 mg PO QAM Qty: 30 0RF Brilinta 90 mg Tablet 90 mg PO BID Qty: 60 0RF aspirin 81 mg Tablet,Delayed Release (Dr/Ec) 81 mg PO QAM Qty: 0 0RF Continued omeprazole magnesium [Prilosec OTC] 20 mg Tablet,Delayed Release (Dr/Ec) 20 mg PO QAM lidocaine [Lidoderm] 5 % adhesive patch,medicated 1 patch TOP DAILY PRN (Reason: pain) Qty: 15 0RF Rx Instructions: leave on most painful area for up to 12 hrs Discharge Orders: Discharge Order (Routine); Ordered 08/06/22 Ordered By: Erik Elizabeth Admission Data Admit Date/Time: 08/04/22 11:27 Attending Provider: Erik Elizabeth Admit Provider: Luciano Simmons Primary Care Provider: PCP,NO Other Providers: Erasmo Mathis Paul Coding Level of Care Code 40315 INP/OBS DISCH >[address] elevation (STEMI) myocardial infarction I21.3 Cardiogenic shock R57.0 Hyperlipidemia E78.5 Ischemic cardiomyopathy I25.5 Tobacco use Z72.0 GERD (gastroesophageal reflux disease) K21.9 Type 2 diabetes mellitus E11.9
--- NOTE | 2022-08-06 16:55 | XCELERA ---
[id number]
--- NOTE | 2022-08-07 07:37 | Electrocardiogram Report ---
Test Reason : Blood Pressure : / mmHG Vent. Rate : 096 BPM Atrial Rate : 096 BPM P-R Int : 142 ms QRS Dur : 084 ms QT Int : 336 ms P-R-T Axes : 060 079 031 degrees QTc Int : 424 ms Normal sinus rhythm Low voltage QRS Anteroseptal infarct (cited on or before 04-AUG-2022) ACUTE [place] / STEMI Abnormal ECG When compared with ECG of 04-AUG-2022 09:57, ST more elevated in Anterior leads T wave inversion no longer evident in Inferior leads T wave amplitude has decreased in Anterior leads Confirmed by Alejandro Shelton ([id number]) on 08/07/2022 7:37:36 AM Referred By: REFERRED SELF Confirmed By:Alejandro Shelton
--- NOTE | 2022-08-07 07:38 | Electrocardiogram Report ---
Test Reason : Blood Pressure : / mmHG Vent. Rate : 100 BPM Atrial Rate : 100 BPM P-R Int : 140 ms QRS Dur : 084 ms QT Int : 336 ms P-R-T Axes : 065 081 029 degrees QTc Int : 433 ms Normal sinus rhythm Low voltage QRS Anteroseptal infarct (cited on or before 04-AUG-2022) Abnormal ECG When compared with ECG of 04-AUG-2022 12:26, (unconfirmed) No significant change was found Confirmed by Alejandro Shelton ([id number] on 08/07/2022 7:37:51 AM Referred By: REFERRED SELF Confirmed By:Alejandro Shelton
== END 2022-08-06 13:45 | disposition home or self-care (01) | DRG 246 ==
LOC: ED 09:51 → ASU 10:49 → 1E 10:49 → SUATTDRO 11:27 → 2N 08-05 15:25